=== PATIENT | male | born 1955 | race Caucasian/White ===

== ENCOUNTER → 2016-12-18 | Day surgery (SDC) | payer OTHER ==
[~2016-12-18] MED LIST: ASPI-630 PO; IV RINGERS,LACTATED 1000ML 1,000 ML IV SCH; LIDOCAINE 1% 1 ML SYRINGE. ID PRN; LIDOCAINE 2% PF Vial for OR 5 ML VIAL. ONE; LISI10TA2 PO; MIDAZOLAM HCL/PF 2 MG/2 ML VIAL. IV PRN; OMEP40CA5 PO; PROPOFOL 40 ML IV ONE; SIMV20TA3 PO; fentaNYL PF VIAL 100 MCG/2 ML VIAL IV PRN
[2016-12-18 10:07] VITALS: BP 155/87
--- NOTE | 2016-12-18 11:51 | CONS ---
DATE OF CONSULTATION: 12/18/2016 REASON FOR CONSULTATION: Garcia's with low-grade dysplasia. HISTORY OF PRESENT ILLNESS: A 61-year-old male whose past medical history is significant for Garcia's, colonic polyps, hyperlipidemia, hypertension, who is seen for an interval exam. Previous biopsies revealed low-grade dysplasia, is on acid suppression 40 mg daily with omeprazole. Upper endoscopy with surveillance is recommended. PAST MEDICAL HISTORY: Garcia's, hypertension, history of colonic polyps, hyperlipidemia. ALLERGIES: None. MEDICATIONS: Include aspirin 81 mg daily, lisinopril 10 mg daily, omeprazole 40 mg daily and simvastatin 20 mg daily. SOCIAL HISTORY: He is a former smoker, social drinker. FAMILY HISTORY: Noncontributory. REVIEW OF SYSTEMS: Per records. PHYSICAL EXAMINATION: VITAL SIGNS: Temperature is 97.7, pulse 85, respirations 20. HEENT: Normocephalic and atraumatic head. Pupils and extraocular muscles not tested. Sclerae anicteric. NECK: Supple. LUNGS: Clear. CARDIOVASCULAR: Reveals an S1, S2 without S3, S4 or appreciable murmur. ABDOMEN: Soft abdomen, normal bowel sounds, without appreciable hepatosplenomegaly. EXTREMITIES: Reveals no cyanosis, clubbing, edema. IMPRESSION: Garcia's with history of low-grade dysplasia. Surveillance endoscopy with biopsies is recommended. Risks and benefits of procedure have been previously discussed with the patient who is willing to proceed at this time. I would like to thank Dr. Richard Joshi for allowing us to consult and participate in this patient's care. DHRUV CHOWDHURY MD DR: SUE/leia JOB#: [id number] / [id number]
--- NOTE | 2016-12-21 14:23 | PATHOLOGY ---
PATHOLOGY REPORT * * * * * * * * FINAL DIAGNOSIS: Esophageal biopsies, distal esophagus: - Segments of columnar-lined mucosa with focal contiguous squamous esophageal mucosa showing chronic inflammation and focal intestinal metaplasia with goblet cells, consistent with Garcia's change. ([facility]; 12/21/2016) COMMENT: Sections of the distal esophageal biopsy primarily reveal segments of columnar-lined mucosa showing moderate chronic inflammation. A few of the segments show contiguous squamous esophageal mucosa. There is focal intestinal metaplasia with goblet cells consistent with Garcia's change. There is no dysplasia or evidence of malignancy. ([facility]; 12/21/2016) REPORT ELECTRONICALLY SIGNED BY: Luis Harris M.D. DATE/TIME: 12/21/2016 14:23 * * * * * * * * GROSS PATHOLOGY: Received in formalin labeled "Rocio Nelson, distal esophageal biopsies," are seven segments of patiño soft tissue measuring 0.8 x 0.3 x 0.2 cm in aggregate dimensions and ranging from 0.1 to 0.3 cm in maximum dimension. The specimen is submitted entirely in cassette A1. ([facility]; 12/18/2016) INITIAL CPT CODE(S): A; 84916 Professional services performed by [facility] at [address] [address] Technical services performed by [facility] at [address] [place] [address], [facility] [address] [address]. SPECIMEN(S) RECEIVED: A.Distal esophageal biopsies CLINICAL HISTORY: History of Garcia's esophagus and low grade dysplasia PATIENT: ROCIO NELSON /AGE: 710/13/1955 (Age: 61) PATIENT #: [id number] ALT CASE #: SPECIMEN COLLECTION DATE: 12/18/2016 SPECIMEN RECEIVED DATE: 12/18/2016 [facility] - [id number] [place] [address] - PHONE: [phone] * * * END OF REPORT * * *
== END | disposition home or self-care (01) ==
LOC: SURG 08:28
PROVIDERS: ATTEND Internal Medicine Gastroenterology
DX: K22.710 Barrett's esophagus with low grade dysplasia (principal); K29.50 Unspecified chronic gastritis without bleeding; E78.00 Pure hypercholesterolemia, unspecified; I10 Essential (primary) hypertension
CPT/HCPCS: 43239; 88305; J2704; J2001